=== PATIENT | male | born 1980 | race Caucasian/White ===

== ENCOUNTER 2020-12-20 01:45 | Emergency (ER) | payer OTHER ==
[~2020-12-20] VITALS: Ht 172.7 cm; Wt 77.3 kg
--- NOTE | 2020-12-20 01:54 | PHYS DOC ---
General Adult EDM: Chief Complaint: HEMORRHOIDS HPI: HPI: ".. I got a really bad hemorrhoid .. I ve had it before.... I could not get to sleep.. [place] closed on weekend.. 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 Patient states he has had hemorrhoids before they respond to topical treatments. However this one is very swollen.. and tender. Patient in fact does have a thrombosed hemorrhoid approximately 2.5 x 2.5 cm e xtending from anus at 9:00. Patient denies any history of coagulopathy. No history of constipation. No history of recent travel. No severe ill contacts. Normally healthy. Up-to-date with vaccinations. Review of Systems: Review of Systems: Constitutional: Denies fever or chills Eyes: Denies change in visual acuity HENT: Denies nasal congestion or sore throat Respiratory: Denies cough or shortness of breath Cardiovascular: Denies chest pain or edema GI: Denies abdominal pain, nausea, vomiting, bloody stools or diarrhea. Patient has complains of rectal hemorrhoid : Denies dysuria Musculoskeletal: Denies back pain or joint pain Integument: Denies rash Neurologic: Denies headache, focal weakness or sensory changes Endocrine: Denies polyuria or polydipsia Lymphatic: Denies swollen glands Psychiatric: Denies depression or anxiety Family History: Family History: Noncontributory Current Medications: Current Meds: See nursing for home meds Allergies: Allergies: No known drug allergies Physical Exam: PE: Constitutional: Well developed, well nourished, no acute distress, non-toxic appearance. [] HENT: Normocephalic, atraumatic, bilateral external ears normal, oropharynx moist, no oral exudates, nose normal. [] Eyes: PERRLA, EOMI, conjunctiva normal, no discharge. [] Neck: Normal range of motion, no tenderness, supple, no stridor. [] Cardiovascular:Heart rate regular rhythm, no murmur [] Lungs & Thorax: Bilateral breath sounds clear to auscultation [] Abdomen: Bowel sounds normal, soft, no tenderness, no masses, no pulsatile masses. Rectal hemorrhoid as per HPI Skin: Warm, dry, no erythema, no rash. [] Back: No tenderness, no CVA tenderness. [] Extremities: No tenderness, no cyanosis, no clubbing, ROM intact, no edema. [] Neurologic: Alert and oriented X 3, normal motor function, normal sensory function, no focal deficits noted. [] Psychologic: Affect normal, judgement normal, mood normal. [] EKG: EKG: [] Radiology/Procedures: Radiology/Procedures: [] Heart Score: C/O Chest Pain: N/A Risk Factors: Risk Factors: DM, Current or recent (<one month) smoker, HTN, HLP, family history of CAD, obesity. Risk Scores: Score 0 - 3: 2.5% MACE over next 6 weeks - Discharge Home Score 4 - 6: 20.3% MACE over next 6 weeks - Admit for Clinical Observation Score 7 - 10: 72.7% MACE over next 6 weeks - Early Invasive Strategies Course & Med Decision Making: Course & Med Decision Making Pertinent Labs and Imaging studies reviewed. (See chart for details) Options for treatment given to patient localized injection versus topical meds versus I&D. Patient elects to have I&D. Procedure note- Area of hemorrhoid injected with lidocaine 2% epinephrine and Sensorcaine 0.75%. Betadine applied small incision with 11 blade. Drainage of a large 2 x 2 centimeter clot and pus. 2 Vicryl 3-0 sutures placed to the site of the varicosity. Patient use sitz bath's. Apply dibucaine ointment 4 times a day. Avoid constipation. Follow-up primary care. Will need further evaluation possible colorectal surgeon and colonoscopy to evaluate for hemorrhoids: Anal abnormalities. Patient may take Percocet up to 4 times a day for marked pain. Do sitz bath's. Use Anusol suppositories as needed. Impression: 1. Thrombosed infected hemorrhoid [] Dragon Disclaimer: Dragon Disclaimer: This electronic medical record was generated, in whole or in part, using a voice recognition dictation system. Departure Departure: Referrals: PCP,UNKNOWN (PCP) Scripts Hydrocortisone Acetate (ANUSOL-HC) 25 Mg Supp.rect 25 MG RC QIDPRN PRN for hemorrhoid, #30 SUPP.RECT Prov: SHEILA WALSH MD 12/20/20 Oxycodone HCl/Acetaminophen (Percocet 5-325 mg Tablet) 1 Each Tablet 1 TAB PO PRN QID PRN for PAIN MDD 4 Tablet(s) for 30 Days, #30 TAB 0 Refills Prov: SHEILA WALSH MD 12/20/20 Metronidazole (FLAGYL) 500 Mg Tablet 500 MG PO TID for rectal infectiion for 14 Days, #42 TAB Prov: SHEILA WALSH MD 12/20/20 Cephalexin (KEFLEX) 750 Mg Capsule 1 CAP PO TID for rectal infection for 7 Days, #21 CAP 0 Refills Prov: SHEILA WALSH MD 12/20/20 SHEILA WALSH MD Dec 20, 2020 01:54
[2020-12-20 01:58] VITALS: BP 141/91
[2020-12-20] MEDS ORDERED: DIBUCAINE RECTAL OINTMENT 28GM TUBE. RC ONE ×2 (02:09→02:30)
[2020-12-20] MEDS ORDERED: BUPIVACAINE PF 0.75% 10 ML VIAL ONE (02:16)
[2020-12-20] MEDS ORDERED: BUPIVACAINE MPF 0.5% 30 ML VIAL. ONE (02:17)
[2020-12-20] MEDS ORDERED: LIDOCAINE 2%/EPI 1:100,000 20 ML VIAL. IJ ONE (02:30)
[2020-12-20] MEDS ORDERED: BUPIVACAINE MPF 0.5% 10 ML VIAL. IJ ONE (02:30)
[2020-12-20] MEDS ORDERED: BUPIVACAINE PF 0.75% 10 ML VIAL IJ ONE (02:30)
[2020-12-20] MEDS ORDERED: HYDR25SU18 RC (03:03)
[2020-12-20] MEDS ORDERED: CEPH750C9 PO (03:03)
[2020-12-20] MEDS ORDERED: OXYC-325 PO (03:03)
[2020-12-20] MEDS ORDERED: METR500T PO (03:03)
[2020-12-20] MEDS ORDERED: CEPHALEXIN 250 MG CAPSULE ONE (03:04)
[2020-12-20] MEDS ORDERED: metroNIDAZOLE 500 MG TABLET PO ONE (03:30)
[2020-12-20] MEDS ORDERED: CEPHALEXIN 250 MG CAPSULE PO ONE (03:30)
== END 2020-12-20 03:10 | disposition home or self-care (01) ==
LOC: ER 01:45
DX: K64.5 Perianal venous thrombosis (principal)
CPT/HCPCS: 46083; 99284; J3490

== ENCOUNTER 2021-08-16 19:29 | Emergency (ER) | payer OTHER ==
[~2021-08-16] VITALS: Ht 167.6 cm; Wt 79.0 kg
[~2021-08-16 19:29] MED LIST: CEPH750C9 PO; HYDR25SU18 RC; METR500T PO; OXYC-325 PO
[2021-08-16] MEDS ORDERED: diphenhydrAMINE 50 MG/ML VIAL IM ONE (20:00)
[2021-08-16] MEDS ORDERED: KETOROLAC 60 MG/2 ML VIAL. IM ONE (20:00)
[2021-08-16 21:12] VITALS: BP 169/76
--- NOTE | 2021-08-16 21:22 | PHYS DOC ---
Past History Past Medical History: No Pertinent History (ANDREY PRUITT APRN) Past Surgical History: No Surgical History (ANDREY PRUITT APRN) Alcohol Use: None (ANDREY PRUITT APRN) General Adult EDM: Chief Complaint: HEADACHE HPI: HPI: Patient is a 40-year-old male presents with migraine. Patient states he has a history of tension headaches. Patient states that headache started at 11 AM this morning and he was not able to resolve it with medication he has at home for migraines. Patient does report nausea and light sensitivity. Denies vomiting or visual changes. Denies thunderclap. Denies being the worst headache of his life. Patient is hemodynamically stable. Patient is rating pain 9/10. Patient has history of migraines and GERD. (ANDREY PRUITT APRN) Review of Systems: Review of Systems: ROS At least 10 ROS systems have been reviewed and are negative except as documented in the HPI. General: Negative except as outlined in HPI above. Skin: Negative except as outlined in HPI above. HEENT: Negative except as outlined in HPI above. Neck: Negative except as outlined in HPI above. Respiratory: Negative except as outlined in HPI above.. Cardiovascular: Negative except as outlined in HPI above. Abdomen: Negative except as outlined in HPI above. : Negative except as outlined in HPI above. Back/MSK: Negative except as outlined in HPI above. Neuro: Negative except as outlined in HPI above. Psych: Negative except as outlined in HPI above. (ANDREY PRUITT APRN) Current Medications: Current Meds: Current Medications Medications (Trade) Dose Ordered Sig/Claudia Start Time Stop Time Status Last Admin Dose Admin Diphenhydramine HCl (Benadryl) 50 mg 1X ONCE 08/16/21 20:00 08/16/21 20:01 DC 08/16/21 20:53 50 MG Ketorolac Tromethamine (Toradol Im) 60 mg 1X ONCE 08/16/21 20:00 08/16/21 20:01 DC 08/16/21 20:53 60 MG (ANDREY PRUITT APRN) Allergies: Allergies: Allergies Coded Allergies Type Severity Reaction Last Updated Verified No Known Drug Allergies 12/20/20 No (ANDREY PRUITT APRN) Physical Exam: PE: Constitutional: Well developed, well nourished, no acute distress, non-toxic appearance. [] HENT: Right-sided headache, bilateral external ears normal, oropharynx moist, no oral exudates, nose normal. [] Eyes: PERRLA, EOMI, conjunctiva normal, no discharge. [] Neck: Normal range of motion, no tenderness, supple, no stridor. [] Cardiovascular:Heart rate regular rhythm, no murmur [] Lungs & Thorax: Bilateral breath sounds clear to auscultation [] Abdomen: Bowel sounds normal, soft, no tenderness, no masses, no pulsatile masses. [] Skin: Warm, dry, no erythema, no rash. [] Back: No tenderness, no CVA tenderness. [] Extremities: No tenderness, no cyanosis, no clubbing, ROM intact, no edema. [] Neurologic: Alert and oriented X 3, normal motor function, normal sensory function, no focal deficits noted. [] Psychologic: Affect normal, judgement normal, mood normal. [] (ANDREY PRUITT APRN) Current Patient Data: Vital Signs: Vital Signs Date Time Temp Pulse Resp B/P (MAP) Pulse Ox O2 Delivery O2 Flow Rate FiO2 08/16/21 21:12 98.2 78 16 169/76 (107) 97 (ANDREY PRUITT APRN) EKG: EKG: [] (ANDREY PRUITT APRN) Radiology/Procedures: Radiology/Procedures: [] (ANDREY PRUITT APRN) Heart Score: C/O Chest Pain: No Risk Factors: Risk Factors: DM, Current or recent (<one month) smoker, HTN, HLP, family history of CAD, obesity. Risk Scores: Score 0 - 3: 2.5% MACE over next 6 weeks - Discharge Home Score 4 - 6: 20.3% MACE over next 6 weeks - Admit for Clinical Observation Score 7 - 10: 72.7% MACE over next 6 weeks - Early Invasive Strategies (ANDREY PRUITT APRN) Course & Med Decision Making: Course & Med Decision Making Pertinent Labs and Imaging studies reviewed. (See chart for details) [] 40-year-old male presents with migraine headache. Patient has a history of tension headaches. Patient given IM Benadryl and Toradol for pain. Patient reports symptoms have resolved. Advised patient to drink plenty of water at home. Ibuprofen for pain. Follow-up with PCP. Discussed return precautions. Patient's pressures been okay with discharge plan. (ANDREY PRUITT APRN) Kalli Disclaimer: Kalli Disclaimer: This electronic medical record was generated, in whole or in part, using a voice recognition dictation system. (ANDREY PRUITT APRN) Departure Departure: Impression: Primary Impression: Headache Qualified Codes: R51.9 - Headache, unspecified Disposition: 01 HOME / SELF CARE / HOMELESS Condition: STABLE Referrals: PCP,UNKNOWN (PCP) Patient Instructions: General Headache Without Cause, [id number] Additional Instructions: You are seen in the emergency room for headache. You were given Toradol and Benadryl which resolved your symptoms. Make sure you are drinking plenty of water at home. You can take ibuprofen for pain. Follow-up with your PCP if pain continues. Return emergency room if you have worsening symptoms or concerns. EMERGENCY DEPARTMENT GENERAL DISCHARGE INSTRUCTIONS Thank you for coming to [facility] (ED) today and trusting us with you care. We trust that you had a positivie experience in our Emergency Department. If you wish to speak to the department management, you may call the director at [phone]. YOUR FOLLOW UP INSTRUCTIONS ARE FOLLOWS: 1. Do you have a private Doctor? If you do not have a private doctor, please ask for a resource list of physicians or clinics that may be able to assist you with fo llow up care. 2. The Emergency Physician has interpreted your x-rays. The X-Ray specialist will also review them. If there is a change in the findings, you will be notified in 48 hours when at all possible. 3. A lab test or culture has been done, your results will be reviewed and you will be notified if you need a change in treatment. ADDITIONAL INSTRUCTIONS AND INFORMATION: 1. Your care today has been supervised by a physician who is specially trained in emergency care. Many problems require more than one evaluation for a complete diagnosis and treatment. We recommend that you schedule your follow up appointment as recommended to ensure complete treatment of you illness or injury. If you are unable to obtain follow up care and continue to have a problem, or if your condition worsens, we recommend that you return to the ED. 2. We are not able to safely determine your condition over the phone nor are we able to give sound medical advice over the phone. For these safety reasons, if you call for medical advice we will ask you to come to the ED for further evaluation. 3. If you have any questions regarding these discharge instructions please call the ED at [phone]. SAFETY INFORMATION: In the interest of safety, wellness, and injury prevention; we encourage you to wear your sealbelt, if you smoke; quite smoking, and we encourage family to use a protecti ve helmet for bicycling and other sporting events that present an increased risk for head injury. IF YOUR SYMPTOMS WORSEN OR NEW SYMPTOMS DEVELOP, OR YOU HAVE CONCERNS ABOUT YOUR CONDITION; OR IF YOUR CONDITION WORSENS WHILE YOU ARE WAITING FOR YOUR FOLLOW UP APPOINTMENT; EITHER CONTACT YOUR PRIMARY CARE DOCTOR, THE PHYSICIAN WHOSE NAME AND NUMBER YOU WERE GIVEN, OR RETURN TO THE ED IMMEDIATELY. Attending Signature Attending Signature I have participated in the care of this patient and I have reviewed and agree with all pertinent clinical information above including history, exam, and recommendations. (SHEILA WALSH MD) ANDREY PRUITT APRN Aug 16, 2021 21:22 SHEILA WALSH MD Aug 17, 2021 08:30
== END 2021-08-16 21:34 | disposition home or self-care (01) ==
LOC: ER 19:29
DX: G43.909 Migraine, unspecified, not intractable, without status migrainosus (principal); K21.9 Gastro-esophageal reflux disease without esophagitis
CPT/HCPCS: 96372; 99284; J1200; J1885

== ENCOUNTER → 2021-09-14 | Outpatient (CLI) | payer OTHER ==
[2021-08-16 21:12] VITALS: BP 169/76
--- NOTE | 2021-09-14 09:29 | RAD ---
DG SMALL BOWEL FOLLOW THROUGH Indication: Reason: ANEMIC, THICK BOWEL MOVEMENTS X SEVERAL YEARS, EPIGSTR PAIN X 2MO / Spl. Instruct ions: ENDOSCOPY AND COLONOSCOPY BOTH NEGATIVE/HEMMORROIDS REMOVED / History: . Comparison: None. Technique: Preliminary network designer film of the abdomen was obtained. Then following ingestion of oral bariu m, serial images of the abdomen were obtained to assess progress of contrast throughout the small bow el. Findings: The network designer image demonstrates a nonobstructive bowel gas pattern. There are no distended small bowel loops. No strictures are seen. The small bowel fold pattern is unr emarkable. Transit time was normal at 40 (normal <120 minutes.) IMPRESSION: 1. Unremarkable small bowel series. Electronically signed by: Cliff Mac DO (09/14/2021 9:27 AM) [id number]
== END ==
LOC: RAD 08:06
PROVIDERS: ATTEND Internal Medicine Gastroenterology
DX: D50.9 Iron deficiency anemia, unspecified (principal)
CPT/HCPCS: 74250